=== PATIENT | male | born 1985 | race American Indian/Alaskan Native ===

== ENCOUNTER 2022-07-01 13:17 | Inpatient (IN) | payer OTHER, MEDICAID, SELFPAY ==
[2022-07-01] VITALS (30 sets, daily range): BP systolic 79–131; BP diastolic 40–70; PULSE 62–94; RESP 10–28; TEMP 36.2–36.6; O2SAT 84–100; BMI 42.5; BMI 39.4
--- NOTE | 2022-07-01 13:38 | PC.NURSE ---
In triage: pt also states while he had a seizure he hit his head. Small abrasion noted to L forehead
--- NOTE | 2022-07-01 13:47 | ED_ITS ---
HPI - General Adult General Chief complaint: Toxicology Problem Stated complaint: alcohol withdrawls Time Seen by Provider: 07/01/22 13:39 Source: patient and family Mode of arrival: Wheelchair History of Present Illness HPI narrative: 36-year-old male. Has a history of alcohol use disorder. Has been to detox in rehab in the past. He states that 1 week ago he went on a ?Samson? he states that his last drink was approximately 9 days ago. Since that time he states he has not ?recovered? from this Samson. He stated that he had a seizure 2 days ago at home in the kitchen. Apparently this was witnessed by his mother. He reports no injuries from this event. He has had 1 seizure in the past related to alcohol withdrawal. 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 Today he is not having any abdominal pain. He is having tingling in his legs. He is here because his mother advised that he come because she was c oncerned about his symptoms. Review of Systems Review of Systems ROS Unobtainable: All systems reviewed & are unremarkable except as noted in HPI and below Patient History Medical History Alcohol use disorder Social History Smoking Status: Never smoker Smoking Status: Never smoker alcohol intake frequency: 3 or more drinks per day Alcohol type: hard liquor Substance Use Type: marijuana Exam Initial Vital Signs Initial Vital Signs: Vital Signs Temperature 97.8 F 07/01/22 13:32 Pulse Rate 94 H 07/01/22 13:32 Respiratory Rate 18 07/01/22 13:32 Blood Pressure 131/56 L 07/01/22 13:32 Pulse Oximetry 100 07/01/22 13:32 Oxygen Delivery Method Room Air 07/01/22 13:32 Const General: cooperative and No ill appearing HENMT Head: normal to inspection and normocephalic Resp Effort & Inspection: normal respiratory effort Auscultation: clear to auscultation bilaterally Cardio Rate: regular rate Rhythm: regular rhythm GI Inspection: normal to inspection and non-distended Palpation: soft and No tender Skin General: no rashes or lesions noted Neuro General: patient alert, patient awake and moves all extremities Extrem General: capillary refill normal Psych Appearance: grossly normal and well kempt Course Orders Ordered: ED Orders 07/01/22 13:38 Magnesium Urgent 07/01/22 13:40 Urine Drug Screen, Rapid Stat 07/01/22 13:48 Complete Blood Count AUTO DIFF Stat Comprehensive Metabolic Panel Stat Ethanol (ETOH) Stat Lipase Stat 07/01/22 14:31 COVID19 -Nasal RAPID Stat 07/01/22 16:00 BMP [Basic Metabolic Panel] Q4H Hepatic (Liver) Panel Urgent 07/01/22 20:00 BMP [Basic Metabolic Panel] Q4H 07/02/22 00:00 BMP [Basic Metabolic Panel] Q4H 07/02/22 04:00 BMP [Basic Metabolic Panel] Q4H 07/02/22 05:00 CBC Auto Diff [Complete Blood Count AUTO DIFF] DAILY 07/02/22 08:00 BMP [Basic Metabolic Panel] Q4H 07/02/22 12:00 BMP [Basic Metabolic Panel] Q4H 07/02/22 16:00 BMP [Basic Metabolic Panel] Q4H 07/02/22 20:00 BMP [Basic Metabolic Panel] Q4H 07/03/22 05:00 CBC Auto Diff [Complete Blood Count AUTO DIFF] DAILY 07/04/22 05:00 CBC Auto Diff [Complete Blood Count AUTO DIFF] DAILY Folic Acid (Folic Acid 1 Mg Tablet) 1 mg PO DAILY [facility] POTASSIUM CHLORIDE IN WATER (Potassium Cl 10 Meq/100 Ml Jacqueline) 10 meq in 100 mls @ 100 mls/hr IV Q1H TENA Stop: 07/01/22 18:29 Last Admin: 07/01/22 14:42 Dose: 100 mls/hr Documented By: ZACK Lorazepam (Lorazepam 1 Mg Tablet) 0 mg PO CIWAPRN PRN; Protocol PRN Reason: Alcohol Withdrawal Multivitamins (Multivitamin 1 Tablet) 1 tab PO DAILY [facility] Multivitamins (Multivitamin 1 Tablet) 1 tab PO DAILY [facility] Naloxone HCl (Naloxone 0.4 Mg/Ml Vial) 0.2 mg IV Q2MIN PRN PRN Reason: Opiate Reversal Thiamine HCl (Thiamine 100 Mg Tablet) 100 mg PO DAILY TENA Stop: 07/05/22 09:01 Discontinued Medications Sodium Chloride (Normal Saline 0.9%) 1,000 mls @ 1,000 mls/hr IV BOLUS ONE Stop: 07/01/22 14:38 Last Admin: 07/01/22 14:23 Dose: 1,000 mls/hr Documented By: ZACK Thiamine HCl 100 mg/ Sodium (Chloride) 101 mls @ 404 mls/hr IV NOW ONE Stop: 07/01/22 13:40 Last Infusion: 07/01/22 14:52 Dose: 0 mls/hr Documented By: Admin: 07/01/22 14:33 Dose: 404 mls/hr Documented By: ZACK Phenobarbital (Phenobarbital 65 Mg/Ml Vial) 260 mg IV NOW ONE Stop: 07/01/22 13:40 Last Admin: 07/01/22 14:22 Dose: 260 mg Documented By: ZACK Potassium Chloride (Potassium Chloride 20 Meq Tab) 80 meq PO NOW ONE Stop: 07/01/22 14:37 Vital Signs Vital signs: Vital Signs - 8 hr 07/01/22 13:32 07/01/22 14:30 07/01/22 14:20 Temperature 97.8 F Pulse Rate 94 H 72 Respiratory Rate 18 15 Blood Pressure 131/56 L 111/62 Pulse Oximetry 100 100 84 L Oxygen Delivery Method Room Air Nasal Cannula Room Air Oxygen Flow Rate 2 Medical Decision Making Lab Data 07/01/22 13:48 07/01/22 13:48 Labs: Lab Results 07/01/22 07/01/22 07/01/22 Range/Units 13:48 13:48 14:31 WBC 12.7 H (4.5-11.0) X10^3/uL RBC 5.80 (4.5-5.9) X10^6/uL Hgb 14.5 (13.5-17.5) g/dL Hct 43.5 (41-53) % MCV 75.0 L (80-100) fL MCH 25.0 L (26-34) PG MCHC 33.4 (30-36) % RDW 15.5 H (11.6-14.8) % Plt Count 221 (150-400) X10^3/uL Neut % (Auto) 73.6 (50-75) % Lymph % (Auto) 9.0 L (25-40) % [place] % (Auto) 17.1 H (3-14) % Eos % (Auto) 0.1 L (2-4) % Baso % (Auto) 0.2 (0-2) % Neut # (Auto) 9400 H (7357-0251) /uL Lymph # (Auto) 1200 (5624-0558) /uL [place] # (Auto) 2200 H (0-900) /uL Eos # (Auto) 0 (0-450) /uL Baso # (Auto) 0 (0-100) /uL Sodium 118 L* (137-145) mmol/L Potassium 1.8 L* (3.4-5.1) mmol/L Chloride 52 L* (98-107) mmol/L Carbon Dioxide 45 H* (22-32) mmol/L BUN 45 H (9-20) mg/dL Creatinine 1.27 H (0.66-1.25) mg/dL Estimated GFR > 60 (>60) mL/min BUN/Creatinine Ratio 35.4 H (6-22) Glucose 185 H (70-100) mg/dL Calcium 8.9 (8.4-10.2) mg/dL Total Bilirubin 4.9 H (0.2-1.3) mg/dL AST 74 H (17-59) IU/L ALT 60 H (<50) IU/L Alkaline Phosphatase 85 (38-126) U/L Total Protein 9.0 H (6.3-8.2) g/dL Albumin 4.9 (3.5-5.0) g/dL Globulin 4.1 (1.7-4.1) g/dL Albumin/Globulin Ratio 1.2 (1.0-2.8) Lipase 479 H (23-300) U/L Ethyl Alcohol < 10 ( - 10) mg/dL SARS-CoV-2 (PCR) Negative (Negative) MDM Narrative Medical decision making narrative: Patient arrived approximately 10 days after his reported last drink. He did have reported seizure 2 days ago. He is somewhat out of the window for concern of alcohol withdrawal. Here in the emergency department his chemistries are significantly abnormal. Has a sodium of 118 which very well could have been the reason for his seizure 2 days ago. He is also hypokalemic. Also has an elevation in his creatinine. All these very well could be because of his alcohol use. Because of his abnormalities patient does require admission to the hospital for further evaluation and treatment. I did discuss this with the patient who expressed understanding and agreement. Discussed the case with Dr. Perdomo on-call for Internal Medicine who will admit. Discharge Plan Departure Patient Disposition: Admitted As Inpatient Clinical Impression: Hyponatremia, Hypokalemia, Alcohol use disorder, Seizure-like activity, Acute kidney injury Admit Date/Time: 07/01/22 14:40 Admit Provider: Juanjose Perdomo
[2022-07-01 13:56] LABS: Add Manual Diff / Slide Review NO; Basophils Absolute Auto 0 /uL (0-100); Basophils Percent Auto 0.2 % (0-2); Eosinophils Absolute Auto 0 /uL (0-450); Eosinophils Percent Auto 0.1 % (2-4); Hematocrit 43.5 % (41-53); Hemoglobin 14.5 g/dL (13.5-17.5); Lymphocytes Absolute Auto 1200 /uL (1100-4500); Mean Corpuscular HGB Conc 33.4 % (30-36); Monocytes Absolute Auto 2200 /uL (0-900); Monocytes Percent Auto 17.1 % (3-14); Neutrophils Absolute Auto 9400 /uL (1500-7000); Neutrophils Percent Auto 73.6 % (50-75); Platelet Count 221 X10^3/uL (150-400); Red Cell Distribution Width 15.5 % (11.6-14.8); White Blood Cell Count 12.7 X10^3/uL (4.5-11.0)
[2022-07-01 14:11] LABS: Albumin 4.9 g/dL (3.5-5.0); Albumin Globulin Ratio 1.2 (1.0-2.8); Alkaline Phosphatase 85 U/L (38-126); BUN Creatinine Ratio 35.4 (6-22); Bilirubin Total 4.9 mg/dL (0.2-1.3); Blood Urea Nitrogen 45 mg/dL (9-20); Calcium 8.9 mg/dL (8.4-10.2); Estimated Glomerular Filt Rate > 60 mL/min (>60); Ethanol (ETOH) < 10 mg/dL; Globulin 4.1 g/dL (1.7-4.1); Glucose 185 mg/dL (70-100); HEMOLYSIS < 15 (0-50); Lipase 479 U/L (23-300)
[2022-07-01 14:17] LABS: Aspartate Aminotransferase 74 IU/L (17-59)
[2022-07-01 14:19] LABS: Alanine Aminotransferase 60 IU/L (<50)
[2022-07-01 14:20] LABS: Sodium 118 mmol/L (137-145)
[2022-07-01 14:21] LABS: Carbon Dioxide 45 mmol/L (22-32); Chloride 52 mmol/L (98-107); Potassium 1.8 mmol/L (3.4-5.1)
[2022-07-01] MEDS: PHENobarbital 65 MG/ML VIAL 260 MG IV (14:22)
[2022-07-01] MEDS: SODIUM CHLORIDE 0.9% 1,000 ML 1000 ML IV ×3 (14:23→18:20)
[2022-07-01] MEDS: THIAMINE 100 MG in SODIUM CHLORIDE 0.9% 100 ML 404 MG IV (14:33)
[2022-07-01] MEDS: POTASSIUM CHLORIDE IN WATER 10 MEQ/100 ML PIGGYBACK 100 MEQ IV ×4 (14:42→17:36)
[2022-07-01 14:48] LABS: COVID19 -Nasal RAPID Negative (Negative)
--- NOTE | 2022-07-01 14:56 | PM.HP.1 ---
History of Present Illness History of Present Illness Date Patient Seen: 07/01/22 Chief complaint: alcohol withdrawls Narrative: Colleen Dugan is a 36yo M with PMH of alcohol abuse and pancreatitis who presents with seizure 2 days ago and found to have severe hyponatremia and hypokalemia. Patient states he developed nausea about a week ago and hasn't eaten a full meal since then. He has had very poor po intake of fluids during that time. He went on an alcohol field and says his last drink was 9 days ago. He has been feeling poorly since then. He then had a seizure witnessed by his mother 2 days ago. He did not want to come to the hospital but his mom finally forced him to today. He currently has a very dry mouth and feels very cold. Denies current headache, NV, CP, SOB, abd pain, diarrhea or dysuria. Patient History Medical History Alcohol use disorder Family & Social History Safety & Behavioral: Feels Safe in Current Yes Environment Suicidal Ideation Description None Suicide Plan Description No Plan Tobacco & Substance use: Smoking Status Never smoker alcohol intake frequency 3 or more drinks per day Substance Use Type marijuana Meds Home Medications and Allergies Home Medications Medication Instructions Recorded Confirmed Type No Known Home Medications 07/01/22 07/01/22 History Allergies Allergy/AdvReac Type Severity Reaction Status Date / Time codeine Allergy Severe Anaphylaxis Verified 07/01/22 16:11 Review of Systems Review of Systems Narrative: All other systems reviewed with the patient and are negative unless otherwise stated. Exam Vital Signs (past 8 hours): - 07/01/22 13:32 07/01/22 14:30 07/01/22 14:20 Temperature 97.8 F Pulse Rate 94 H 72 Respiratory Rate 18 15 Blood Pressure 131/56 L 111/62 Pulse Oximetry 100 100 84 L Oxygen Delivery Method Room Air Nasal Cannula Room Air Oxygen Flow Rate 2 Oxygen Delivery Method Nasal Cannula Oxygen Flow Rate 2 Narrative Exam Narrative: GEN: no acute distress, very dry appearing HEENT: dry mucous membranes, PERRL NECK: trachea midline, no JVD CV: regular rate and rhythm, no murmurs PULM: clear bilaterally ABD: soft, nontender, nondistended, no organomegaly EXT: warm and well perfused with no edema NEURO: awake, alert, oriented, no focal deficits Objective Labs 07/01/22 13:48 07/01/22 16:20 Labs: Laboratory Results - last 24 hr 07/01/22 07/01/22 07/01/22 13:48 13:48 14:31 WBC 12.7 H RBC 5.80 Hgb 14.5 Hct 43.5 MCV 75.0 L MCH 25.0 L MCHC 33.4 RDW 15.5 H Plt Count 221 Neut % (Auto) 73.6 Lymph % (Auto) 9.0 L [place] % (Auto) 17.1 H Eos % (Auto) 0.1 L Baso % (Auto) 0.2 Neut # (Auto) 9400 H Lymph # (Auto) 1200 [place] # (Auto) 2200 H Eos # (Auto) 0 Baso # (Auto) 0 Sodium 118 L* Potassium 1.8 L* Chloride 52 L* Carbon Dioxide 45 H* BUN 45 H Creatinine 1.27 H Estimated GFR > 60 BUN/Creatinine Ratio 35.4 H Glucose 185 H Calcium 8.9 Total Bilirubin 4.9 H AST 74 H ALT 60 H Alkaline Phosphatase 85 Total Protein 9.0 H Albumin 4.9 Globulin 4.1 Albumin/Globulin Ratio 1.2 Lipase 479 H Ethyl Alcohol < 10 SARS-CoV-2 (PCR) Negative Assessment & Plan Assessment & Plan narrative: # severe hyponatremia with subacute seizure -patient's mother notes a seizure at home 2 days ago, likely due to low sodium from hypovolemia as chloride is 52 -1L NS bolus given in ED, check urine sodium -BMP q4h -goal sodium 125 at 1pm on 07/02 -avoid rapid correction, will use D5 and DDAVP if needed # severe hypokalemia -potassium 1.8 -given 80 of po K and 40 IV K -monitor -check mag # hyperbilirubinemia and elevated LFTs -T-bili 4.9, AST 74 and ALT 60. Alk phos normal. -no abdominal pain, doubt choledocho -check fractionated bilirubin -monitor # alcohol abuse -went on a field 10 days ago, has had alcohol withdrawal seizures in the past -out of withdrawal window, but intiate CIWA just in case Code status is full code. COVID negative. DVT prophylaxis with SCDs. Proxy is mother Mesfin. I have reviewed home meds and used all available resources to reconcile the home meds. I spent a total of 35 minutes of critical care time on this patient's care today; this time is exclusive of procedural time. This patient will be admitted as inpatient and will require greater than 2 midnights of hospital time to treat hyponatremia and hypokalemia. Time Spent With Patient Critical Care time: I spent a total of [] minutes of critical care time on this patient's care today; this time is exclusive of procedural time.
--- NOTE | 2022-07-01 14:58 | PC.NURSE ---
Mom: Mesfin Julian [phone]
[2022-07-01 15:06] LABS: Magnesium 2.7 mg/dL (1.6-2.3)
[2022-07-01] MEDS: POTASSIUM CHLORIDE 20 MEQ TAB 80 MEQ PO ×2 (15:22→17:09)
[2022-07-01 16:43] LABS: Alanine Aminotransferase 41 IU/L (<50); Albumin 4.3 g/dL (3.5-5.0); Albumin Globulin Ratio 1.1 (1.0-2.8); Alkaline Phosphatase 79 U/L (38-126); Aspartate Aminotransferase 65 IU/L (17-59); BUN Creatinine Ratio 39.6 (6-22); Bilirubin Total 4.6 mg/dL (0.2-1.3); Bilirubin Unconjugated 4.2 mg/dL (0.0-1.1); Blood Urea Nitrogen 44 mg/dL (9-20); Estimated Glomerular Filt Rate > 60 mL/min (>60); Glucose 100 mg/dL (70-100); HEMOLYSIS 17 (0-50); Sodium 120 mmol/L (137-145); Total Protein 8.3 g/dL (6.3-8.2)
[2022-07-01 16:50] LABS: Potassium 1.8 mmol/L (3.4-5.1)
[2022-07-01 16:51] LABS: Carbon Dioxide 53 mmol/L (22-32); Chloride 57 mmol/L (98-107)
[2022-07-01] MEDS: SODIUM CHLORIDE 0.9% 1,000 ML 100 ML IV ×2 (17:36→23:25)
[2022-07-01 17:37] LABS: MRSA (Nasal) PCR Not Detected (Not Detect)
--- NOTE | 2022-07-01 17:48 | PC.NURSE ---
pt arrived via gurney from ED, bedside report received, connected to monitoring equipment, oriented to room and call light system, admission assessment completed. Dr Perdomo notified of critical labs, new orders in computer for NS at 100ml/hr. Pt became hypotensive MAP of 62 BP 87/43, Dr Perdomo notified, new orders placed for 1L bolus of NS, provider at bedside. Bed low and locked, alarm on for safety, will continue to monitor.
--- NOTE | 2022-07-01 19:27 | DI.CT.S_ITS ---
PROCEDURE: CT ABDOMEN PELVIS W CON INDICATIONS: nausea, elevated bili TECHNIQUE: After the administration of IV contrast, axial sections were acquired from the lung bases to the pubic symphysis. Coronal and sagittal reformats were performed. For radiation dose reduction, the following was used: automated exposure control, adjustment of mA and/or kV according to patient size. COMPARISON: [facility], CT, CT ABDOMEN PELVIS WITH CONTRAST, 11/16/2018, 17:53. FINDINGS: Image quality: Excellent. Lung bases: There is mild dependent atelectasis. Heart: Heart is normal in size. ABDOMEN: Liver: No mass lesion. Gallbladder: There are small dependent calcified gallstones in the gallbladder without wall thickening or pericholecystic fluid. Biliary ducts: No biliary ductal dilatation. Pancreas: Unremarkable. Spleen: Normal in size. Adrenal Glands: No adrenal nodules. Kidneys and Ureters: No hydronephrosis. There are a the few hypodense foci within the kidneys which are too small to characterize but likely represent cysts. Stomach and Bowel: Stomach, small bowel loops, and colon are normal in caliber and wall thickness. The appendix is normal. Peritoneum: No abnormal intraperitoneal fluid. No free air. Ventral Wall: No hernia. Abdominal Nodes: No retroperitoneal or mesenteric adenopathy by size criteria. Vessels: Aorta and inferior vena cava are normal in size. PELVIS: Pelvic Organs: Unremarkable. Bladder: Unremarkable. Pelvic Nodes: No enlarged lymph nodes. Miscellaneous: No inguinal hernias are seen. Bones: Visualized osseous structures demonstrate no suspicious focal lesions. IMPRESSION: 1. Cholelithiasis without CT evidence of acute cholecystitis. 2. No evidence of appendicitis. 3. No evidence of bowel obstruction. Dictated by: Carlos Beck M.D. on 07/02/2022 at 0:30 Approved by: Carlos Beck M.D. on 07/02/2022 at 0:33
[2022-07-01 20:07] LABS: Hematocrit 36.2 % (41-53); Hemoglobin 12.3 g/dL (13.5-17.5); Mean Corpuscular Hemoglobin 25.4 PG (26-34); Mean Corpuscular Volume 74.8 fL (80-100); Platelet Count 184 X10^3/uL (150-400); Red Blood Cell Count 4.84 X10^6/uL (4.5-5.9); Red Cell Distribution Width 15.4 % (11.6-14.8); White Blood Cell Count 10.7 X10^3/uL (4.5-11.0)
[2022-07-01 20:35] LABS: BUN Creatinine Ratio 36.4 (6-22); Blood Urea Nitrogen 36 mg/dL (9-20); Calcium 7.3 mg/dL (8.4-10.2); Estimated Glomerular Filt Rate > 60 mL/min (>60); Glucose 103 mg/dL (70-100); HEMOLYSIS < 15 (0-50); Sodium 121 mmol/L (137-145)
[2022-07-01 20:44] LABS: Carbon Dioxide 44 mmol/L (22-32); Chloride 69 mmol/L (98-107); Potassium 2.6 mmol/L (3.4-5.1)
[2022-07-01] MEDS: POTASSIUM CHLORIDE 20 MEQ TAB 40 MEQ PO (22:19)
[2022-07-01] MEDS: SODIUM CHLORIDE 0.9% 500 ML 1000 ML IV (22:21)
[2022-07-01 22:30] LABS: UR Morphine/Opiate cutoff 300 Negative (Negative); Ur Creatinine Normal (Normal); Ur Specific Gravity Normal (Normal); Urine Amphetamines Negative (Negative); Urine Barbiturates Positive (Negative); Urine Benzodiazepines Negative (Negative); Urine Cocaine Negative (Negative); Urine MDMA Negative (Negative); Urine Methadone Negative (Negative); Urine Methamphetamines Negative (Negative); Urine Oxycodone Negative (Negative); Urine Phencyclidine Negative (Negative); Urine Tetrahydrocannabinol Positive (Negative); Urine Tricyclic Antidepressant Negative (Negative); Urine pH Normal (Normal)
--- NOTE | 2022-07-01 22:45 | PC.NURSE ---
2200-Patient transported to CT Scan with school bus monitor. Patient tolerated procedure well. Patient was able to stand and void when it was noted that his bladder was very distended. Patient verbalized relief of abdominal s/s. Bolus complete and po potassium given per MD order. Will monitor.
[2022-07-01 22:56] LABS: Sodium Urine Random 36 mmol/L (30-90)
[2022-07-02] VITALS (51 sets, daily range): BP systolic 83–128; BP diastolic 43–63; PULSE 64–96; RESP 10–35; TEMP 35.9–36.8; O2SAT 96–100
[2022-07-02 01:05] LABS: BUN Creatinine Ratio 33.3 (6-22); Blood Urea Nitrogen 30 mg/dL (9-20); Calcium 7.4 mg/dL (8.4-10.2); Estimated Glomerular Filt Rate > 60 mL/min (>60); Glucose 102 mg/dL (70-100); HEMOLYSIS < 15 (0-50); Sodium 122 mmol/L (137-145)
[2022-07-02 01:15] LABS: Potassium 2.5 mmol/L (3.4-5.1)
[2022-07-02 01:16] LABS: Carbon Dioxide 40 mmol/L (22-32); Chloride 75 mmol/L (98-107)
[2022-07-02 04:54] LABS: Add Manual Diff / Slide Review NO; Basophils Absolute Auto 100 /uL (0-100); Basophils Percent Auto 0.6 % (0-2); Eosinophils Absolute Auto 0 /uL (0-450); Eosinophils Percent Auto 0.5 % (2-4); Hematocrit 36.2 % (41-53); Lymphocytes Absolute Auto 3200 /uL (1100-4500); Lymphocytes Percent Auto 34.4 % (25-40); Mean Corpuscular HGB Conc 33.1 % (30-36); Mean Corpuscular Hemoglobin 25.2 PG (26-34); Monocytes Absolute Auto 1300 /uL (0-900); Monocytes Percent Auto 14.4 % (3-14); Neutrophils Absolute Auto 4600 /uL (1500-7000); Neutrophils Percent Auto 50.1 % (50-75); Platelet Count 171 X10^3/uL (150-400); Red Blood Cell Count 4.77 X10^6/uL (4.5-5.9); Red Cell Distribution Width 15.5 % (11.6-14.8); White Blood Cell Count 9.3 X10^3/uL (4.5-11.0)
[2022-07-02 05:02] LABS: BUN Creatinine Ratio 31.8 (6-22); Blood Urea Nitrogen 27 mg/dL (9-20); Calcium 7.7 mg/dL (8.4-10.2); Chloride 77 mmol/L (98-107); Estimated Glomerular Filt Rate > 60 mL/min (>60); Glucose 96 mg/dL (70-100); HEMOLYSIS < 15 (0-50); Sodium 125 mmol/L (137-145)
[2022-07-02 05:10] LABS: Potassium 2.4 mmol/L (3.4-5.1)
[2022-07-02 05:11] LABS: Carbon Dioxide 43 mmol/L (22-32)
[2022-07-02] MEDS: DEXTROSE 5% WATER 1,000 ML 100 ML IV (06:16)
--- NOTE | 2022-07-02 07:14 | P.PN_ITS ---
Subjective Subjective Interval history: Sodium 126 today. D5 running. Patient hypotensive to 80/40's so levophed started. ACTH stim test pending, echo pending. K 2.3. Patient feels better today he says. Has an appetite. Exam Vital Signs (past 8 hours): - 07/01/22 23:30 07/01/22 23:30 07/02/22 00:00 Temperature Pulse Rate 70 Respiratory Rate 18 Blood Pressure 88/42 L 83/45 L Pulse Oximetry 95 Oxygen Delivery Method Oxygen Flow Rate 07/02/22 00:00 07/02/22 01:50 07/02/22 00:30 Temperature 96.6 F L Pulse Rate 70 Respiratory Rate 21 Blood Pressure 85/47 L Pulse Oximetry 96 Oxygen Delivery Method Nasal Cannula Oxygen Flow Rate 2 07/02/22 00:30 07/02/22 01:00 07/02/22 01:00 Temperature Pulse Rate 69 67 Respiratory Rate 20 20 Blood Pressure 92/50 L Pulse Oximetry 96 98 Oxygen Delivery Method Oxygen Flow Rate 07/02/22 01:30 07/02/22 01:30 07/02/22 02:00 Temperature Pulse Rate 66 Respiratory Rate 21 Blood Pressure 88/53 L 91/49 L Pulse Oximetry 99 Oxygen Delivery Method Oxygen Flow Rate 07/02/22 02:00 07/02/22 02:30 07/02/22 02:30 Temperature Pulse Rate 79 66 Respiratory Rate 19 21 Blood Pressure 99/55 L Pulse Oximetry 100 98 Oxygen Delivery Method Oxygen Flow Rate 2 07/02/22 03:00 07/02/22 03:00 07/02/22 03:30 Temperature Pulse Rate 72 Respiratory Rate 12 Blood Pressure 105/60 104/55 L Pulse Oximetry 98 Oxygen Delivery Method Oxygen Flow Rate 07/02/22 03:30 07/02/22 04:00 07/02/22 04:00 Temperature 96.8 F L Pulse Rate 68 64 Respiratory Rate 10 L 20 Blood Pressure 102/55 L Pulse Oximetry 100 98 Oxygen Delivery Method Oxygen Flow Rate 2 2 07/02/22 04:30 07/02/22 04:30 07/02/22 05:00 Temperature Pulse Rate 71 Respiratory Rate 24 Blood Pressure 92/46 L 87/43 L Pulse Oximetry 100 Oxygen Delivery Method Oxygen Flow Rate 07/02/22 05:00 07/02/22 05:30 07/02/22 05:30 Temperature Pulse Rate 72 72 Respiratory Rate 23 21 Blood Pressure 87/45 L Pulse Oximetry 97 100 Oxygen Delivery Method Oxygen Flow Rate 07/02/22 06:00 07/02/22 06:00 Temperature Pulse Rate 72 Respiratory Rate 19 Blood Pressure 95/55 L Pulse Oximetry 98 Oxygen Delivery Method Oxygen Flow Rate 2 Oxygen Delivery Method Nasal Cannula Oxygen Flow Rate 2 Narrative Exam Narrative: GEN: no acute distress, appears more hydrated today HEENT: dry mucous membranes, PERRL NECK: trachea midline, no JVD CV: regular rate and rhythm, no murmurs PULM: clear bilaterally ABD: soft, nontender, nondistended, no organomegaly EXT: warm and well perfused with no edema NEURO: awake, alert, oriented, no focal deficits Objective Labs 07/02/22 04:05 07/02/22 11:36 Labs: Laboratory Results - last 24 hr 07/01/22 07/01/22 07/01/22 13:38 13:48 13:48 WBC 12.7 H RBC 5.80 Hgb 14.5 Hct 43.5 MCV 75.0 L MCH 25.0 L MCHC 33.4 RDW 15.5 H Plt Count 221 Neut % (Auto) 73.6 Lymph % (Auto) 9.0 L Preble % (Auto) 17.1 H Eos % (Auto) 0.1 L Baso % (Auto) 0.2 Neut # (Auto) 9400 H Lymph # (Auto) 1200 Preble # (Auto) 2200 H Eos # (Auto) 0 Baso # (Auto) 0 Sodium 118 L* Potassium 1.8 L* Chloride 52 L* Carbon Dioxide 45 H* BUN 45 H Creatinine 1.27 H Estimated GFR > 60 BUN/Creatinine Ratio 35.4 H Glucose 185 H Calcium 8.9 Magnesium 2.7 H Total Bilirubin 4.9 H Conjugated Bilirubin Unconjugated Bilirubin AST 74 H ALT 60 H Alkaline Phosphatase 85 Total Protein 9.0 H Albumin 4.9 Globulin 4.1 Albumin/Globulin Ratio 1.2 Lipase 479 H Ur Random Sodium Nasal Screen MRSA (PCR) U Opiates 300ng/mL cut Ur Oxycodone Screen Urine Methadone Screen Ur Barbiturates Screen U Tricyclic Antidepress Ur Phencyclidine Scrn Ur Amphetamines Screen U Methamphetamines Scrn Ur MDMA Scrn (Ecstasy) U Benzodiazepines Scrn Urine Cocaine Screen U Marijuana (THC) Screen Ethyl Alcohol < 10 SARS-CoV-2 (PCR) 07/01/22 07/01/22 07/01/22 14:31 16:05 16:20 WBC RBC Hgb Hct MCV MCH MCHC RDW Plt Count Neut % (Auto) Lymph % (Auto) Preble % (Auto) Eos % (Auto) Baso % (Auto) Neut # (Auto) Lymph # (Auto) Preble # (Auto) Eos # (Auto) Baso # (Auto) Sodium 120 L Potassium 1.8 L* Chloride 57 L* Carbon Dioxide 53 H* BUN 44 H Creatinine 1.11 Estimated GFR > 60 BUN/Creatinine Ratio 39.6 H Glucose 100 Calcium 8.0 L Magnesium Total Bilirubin 4.6 H Conjugated Bilirubin 0.0 Unconjugated Bilirubin 4.2 H AST 65 H ALT 41 Alkaline Phosphatase 79 Total Protein 8.3 H Albumin 4.3 Globulin 4.0 Albumin/Globulin Ratio 1.1 Lipase Ur Random Sodium Nasal Screen MRSA (PCR) Not detected U Opiates 300ng/mL cut Ur Oxycodone Screen Urine Methadone Screen Ur Barbiturates Screen U Tricyclic Antidepress Ur Phencyclidine Scrn Ur Amphetamines Screen U Methamphetamines Scrn Ur MDMA Scrn (Ecstasy) U Benzodiazepines Scrn Urine Cocaine Screen U Marijuana (THC) Screen Ethyl Alcohol SARS-CoV-2 (PCR) Negative 07/01/22 07/01/22 07/01/22 19:52 19:52 21:30 WBC 10.7 RBC 4.84 Hgb 12.3 L Hct 36.2 L MCV 74.8 L MCH 25.4 L MCHC 34.0 RDW 15.4 H Plt Count 184 Neut % (Auto) Lymph % (Auto) Preble % (Auto) Eos % (Auto) Baso % (Auto) Neut # (Auto) Lymph # (Auto) Preble # (Auto) Eos # (Auto) Baso # (Auto) Sodium 121 L Potassium 2.6 L* Chloride 69 L* Carbon Dioxide 44 H* BUN 36 H Creatinine 0.99 Estimated GFR > 60 BUN/Creatinine Ratio 36.4 H Glucose 103 H Calcium 7.3 L Magnesium Total Bilirubin Conjugated Bilirubin Unconjugated Bilirubin AST ALT Alkaline Phosphatase Total Protein Albumin Globulin Albumin/Globulin Ratio Lipase Ur Random Sodium 36 Nasal Screen MRSA (PCR) U Opiates 300ng/mL cut Ur Oxycodone Screen Urine Methadone Screen Ur Barbiturates Screen U Tricyclic Antidepress Ur Phencyclidine Scrn Ur Amphetamines Screen U Methamphetamines Scrn Ur MDMA Scrn (Ecstasy) U Benzodiazepines Scrn Urine Cocaine Screen U Marijuana (THC) Screen Ethyl Alcohol SARS-CoV-2 (PCR) 07/01/22 07/02/22 07/02/22 21:30 00:47 04:05 WBC RBC Hgb Hct MCV MCH MCHC RDW Plt Count Neut % (Auto) Lymph % (Auto) Preble % (Auto) Eos % (Auto) Baso % (Auto) Neut # (Auto) Lymph # (Auto) Preble # (Auto) Eos # (Auto) Baso # (Auto) Sodium 122 L 125 L Potassium 2.5 L* 2.4 L* Chloride 75 L* 77 L Carbon Dioxide 40 H* 43 H* BUN 30 H 27 H Creatinine 0.90 0.85 Estimated GFR > 60 > 60 BUN/Creatinine Ratio 33.3 H 31.8 H Glucose 102 H 96 Calcium 7.4 L 7.7 L Magnesium Total Bilirubin Conjugated Bilirubin Unconjugated Bilirubin AST ALT Alkaline Phosphatase Total Protein Albumin Globulin Albumin/Globulin Ratio Lipase Ur Random Sodium Nasal Screen MRSA (PCR) U Opiates 300ng/mL cut Negative Ur Oxycodone Screen Negative Urine Methadone Screen Negative Ur Barbiturates Screen Positive H U Tricyclic Antidepress Negative Ur Phencyclidine Scrn Negative Ur Amphetamines Screen Negative U Methamphetamines Scrn Negative Ur MDMA Scrn (Ecstasy) Negative U Benzodiazepines Scrn Negative Urine Cocaine Screen Negative U Marijuana (THC) Screen Positive H Ethyl Alcohol SARS-CoV-2 (PCR) 07/02/22 04:05 WBC 9.3 RBC 4.77 Hgb 12.0 L Hct 36.2 L MCV 76.0 L MCH 25.2 L MCHC 33.1 RDW 15.5 H Plt Count 171 Neut % (Auto) 50.1 D Lymph % (Auto) 34.4 D Preble % (Auto) 14.4 H Eos % (Auto) 0.5 L Baso % (Auto) 0.6 Neut # (Auto) 4600 Lymph # (Auto) 3200 Preble # (Auto) 1300 H Eos # (Auto) 0 Baso # (Auto) 100 Sodium Potassium Chloride Carbon Dioxide BUN Creatinine Estimated GFR BUN/Creatinine Ratio Glucose Calcium Magnesium Total Bilirubin Conjugated Bilirubin Unconjugated Bilirubin AST ALT Alkaline Phosphatase Total Protein Albumin Globulin Albumin/Globulin Ratio Lipase Ur Random Sodium Nasal Screen MRSA (PCR) U Opiates 300ng/mL cut Ur Oxycodone Screen Urine Methadone Screen Ur Barbiturates Screen U Tricyclic Antidepress Ur Phencyclidine Scrn Ur Amphetamines Screen U Methamphetamines Scrn Ur MDMA Scrn (Ecstasy) U Benzodiazepines Scrn Urine Cocaine Screen U Marijuana (THC) Screen Ethyl Alcohol SARS-CoV-2 (PCR) PFS Medical History Alcohol use disorder Social History household members: family Smoking Status: Current some day smoker alcohol intake: current Assessment & Plan Assessment & Plan narrative: # undifferentiated shock, unclear etiology -BP 80/40's despite fluid boluses, levophed started -check echo, procal, ACTH stim test as AM cortisol mildly low at 6 given hypotension -lactate 2.9, trend to normal -likely hypovolemic as patient's chloride very low and bicarb very high -will given another 1L bolus # severe hyponatremia with subacute seizure, improving -patient's mother notes a seizure at home 2 days ago, likely due to low sodium from hypovolemia as chloride is 52 -1L NS bolus given in ED -BMP q4h -goal sodium 131 at noon on 07/03 -avoid rapid correction, will use D5 and DDAVP if needed # severe hypokalemia, hypophosphatemia improving -potassium 1.8 on admission, hadn't eaten much in 1 week per patient -given large doses of IV and po K and now in mid-2's -monitor -mag 2.0 -continue po K 80mEq TID with meals -phos 1.7, giving K phos IV # prolonged QT -QTc 559 on EKG on 07/02, not on offending medications -mag 2, check daily -avoid prolonging medications -monitor -tele # hyperbilirubinemia and elevated LFTs -T-bili 4.9, AST 74 and ALT 60. Alk phos normal. -no abdominal pain, doubt choledocho -unfractionated bili 4.2, fractionated is 0 thus making obstructive cause unlikely and intrinsic liver disease likely -monitor # alcohol abuse with h/o alcohol withdrawal seizures -went on a field 10 days ago -not in withdrawals, outside of window as last drink 9 days ago Code status is full code. COVID negative. DVT prophylaxis with SCDs. Proxy is mother Mesfin. I have reviewed home meds and used all available resources to reconcile the home meds. I spent a total of 35 minutes of critical care time on this patient's care today; this time is exclusive of procedural time. Dispo: ICU Time Spent With Patient Critical Care time: I spent a total of [] minutes of critical care time on this patient's care today; this time is exclusive of procedural time. Quality VTE Deep Vein Thrombosis/Pulmonary Embolism Present on Admission: No
[2022-07-02] MEDS: THIAMINE 100 MG TABLET PO (08:15)
[2022-07-02] MEDS: MULTIVITAMIN 1 TABLET 1 TAB PO (08:15)
[2022-07-02] MEDS: FOLIC ACID 1 MG TABLET PO (08:15)
[2022-07-02] MEDS: POTASSIUM CHLORIDE 20 MEQ TAB 40 MEQ PO ×4 (08:15→16:48)
[2022-07-02 08:25] LABS: Blood Urea Nitrogen 24 mg/dL (9-20); Calcium 7.8 mg/dL (8.4-10.2); Chloride 78 mmol/L (98-107); Estimated Glomerular Filt Rate > 60 mL/min (>60); Glucose 114 mg/dL (70-100); HEMOLYSIS < 15 (0-50); Sodium 126 mmol/L (137-145)
[2022-07-02 08:31] LABS: Carbon Dioxide 41 mmol/L (22-32)
[2022-07-02 08:32] LABS: Potassium 2.3 mmol/L (3.4-5.1)
--- NOTE | 2022-07-02 08:42 | DI.ECHO.S_ITS ---
[place] +---------+ [facility] +---------+ : : [address] : : : : [id number] : : : : Phone: [phone]+ Echocardiogram Report + + :Name: CHAZ RICKS Study Date: 07/02/2022 Height: 68 in : :[facility] ReadingLocation: Weight: 259 lb : : Gender: Male BSA: 2.3 m2 : :: 1985 Age: 36 yrs BP: 102/53 mmHg: :Reason For Study: HYPOTENSION : :Ordering Physician: MARIBEL, : :MARCELLO Lau Performed By: Manju Lynch : :Referring: MARCELLO LÓPEZ : + + Interpretation Summary The left ventricle is normal in size and wall thickness. The ejection fraction is estimated to be 65-70%. Diastolic parameters suggest probable normal left ventricular diastolic function and normal filling pressures. The right ventricle is normal in size and function. No significant valvular pathology seen. The IVC is of normal diameter and collapses greater than 50% with a sniff. This suggests a low right atrial pressure of 3 mm Hg. Procedure: A two-dimensional transthoracic echocardiogram with color flow and Doppler was performed. The study quality was technically adequate. There is no prior echocardiogram noted for this patient. The patient was in sinus rhythm with heart rates between 72-81 bpm during the exam. Left Ventricle: The left ventricle is normal in size and wall thickness. There is no echo evidence for significant left ventricular outflow tract obstruction. There is no thrombus. The ejection fraction is estimated to be 65-70%. There are no focal wall motion abnormalities. Diastolic parameters suggest probable normal left ventricular diastolic function and normal filling pressures. Right Ventricle: The right ventricle is normal in size and function. Atria: The left atrial size is normal. Right atrial size is normal. There is no Doppler evidence for an interatrial shunt. Mitral Valve: The mitral valve is normal in structure and function. There is no mitral regurgitation noted. Aortic Valve: The aortic valve is trileaflet. The aortic valve opens well. There is no aortic valve stenosis. No aortic regurgitation is present. Tricuspid Valve: The tricuspid valve is normal in structure and function. No tricuspid regurgitation. Pulmonary artery pressures cannot be estimated because of the lack of a measurable TR jet velocity. Pulmonic Valve: The pulmonic valve is not well seen, but is grossly normal. There is no pulmonic valvular regurgitation. Great Vessels: The aortic root is normal size. The dimensions of the ascending aorta are normal. Ultrasound artifact seen in the aortic arch. The IVC is of normal diameter and collapses greater than 50% with a sniff. This suggests a low right atrial pressure of 3 mm Hg. Pericardium/ Pleura There is no pericardial effusion. There is no pleural effusion. MMode/2D Measurements & Calculations LVIDd: 4.3 cm LVOT diam: 2.1 cm LVIDs: 2.5 cm Ao root diam: 3.9 cm FS: 41.3 % asc Aorta Diam: 3.3 cm IVSd: 0.80 cm Ao Arch Diam (Prox Trans): 2.9 cm LVPWd: 0.77 cm LV fuller. diameter/BSA (cm/m^2): 1.9 LV sys. diameter/BSA (cm/m^2): 1.1 LA A2 area: 22.7 cm2 RA long axis: 4.8 cm LA A4 area: 16.9 cm2 RA area: 12.4 cm2 LA length (vol): 5.6 cm RA vol: 27.0 ml LA vol: 58.2 ml RA : 11.8 ml/m2 LA vol index: 25.5 ml/m2 IVC diam: 1.3 cm RVD1 (basal): 3.7 cm RVD2 (mid): 4.1 cm TAPSE: 2.5 cm Doppler Measurements & Calculations Ao V2 max: 182.1 cm/sec LVOT Max Yovani: 128.7 cm/sec Ao V2 mean: 140.4 cm/sec LV V1 max P.6 mmHg Ao max P.3 mmHg LV V1 VTI: 23.7 cm Ao mean P.4 mmHg IZABEL(I,D): 2.4 cm2 Ao V2 VTI: 34.2 cm IZABEL(V,D): 2.5 cm2 sev ratio: 0.69 IZABEL indexed to BSA (cm^2/m^2): 1.1 MV E max yovani: 95.5 cm/sec PA V2 max: 135.6 cm/sec MV A max yovani: 50.0 cm/sec PA V2 mean: 99.0 cm/sec MV E/A: 1.9 PA mean P.3 mmHg Med Peak E' Yovani: 10.4 cm/sec PA pr(Accel): 37.9 mmHg E/E' med: 9.2 Lat Peak E' Yovani: 13.3 cm/sec E/E' lat: 7.2 E/e' average: 8.2 MV dec time: 0.26 sec SV(LVOT): 82.5 ml Reading Physician:[id number] PM
--- NOTE | 2022-07-02 08:42 | PC.NURSE ---
Critical Lab: Critical lab reported to Dr. Conor Carrera 2.3 CO2 41 Updated on VS Fire Observer will be contacted by Hospitalist
[2022-07-02 09:37] LABS: Lactate (Lactic Acid) 2.9 mmol/L (0.7-2.1)
[2022-07-02 09:49] LABS: Cortisol AM (Before 10AM) 6.05 ug/dL (4.46-22.7)
--- NOTE | 2022-07-02 10:05 | P.TELICUCN_ITS ---
History of Present Illness Consult details IF CAMERA ACTIVATED, patient seen via real-time interactive audiovisual communication: Camera activated Date Patient Seen: 07/02/22 Chief complaint: alcohol withdrawls Reason for consult: nocturnal hypotension & hyponatremia Requesting provider: Juanjose Perdomo Consent obtained for tele-marketing communications associate care: Yes Patient Location: ICU Provider location (State): [place] Other participants/roles: Dr. Perdomo, hospitalist Bedside RN Narrative: 36 yo M with h/o of alcohol abuse, h/o withdrawal and sezieure, pancreatitis, obesity- Reportedly had binge drinking 11 days ago now, and became ill, unable to eat/drink- Had witnessed seizure 2 days prior to admission - On arrival to ED found to be hyponatremic to 118, hypokalemic, dehydrated with AMS Patient was given 3-4 L of NS over last day and Na corrected to 126 this am. Goal 125 by 1 pm today . He was also given 200 mEq of K and K this am up to 2.3 from 1.8. Overnight, he had low MAPs as low as 55 intermittently. He has had no associated fever, localizing sx of infection LA this am 2.9 ( no prior for comparison). At that point ICU consulted for possible vasopressor need. However on awakening, MAP is 80, patient is alert and eating/ drinking and interacting with family at bedside. [facility], [facility] Medical History Alcohol use disorder Social History household members: family Smoking Status: Current some day smoker alcohol intake: current Current Medications Current Medications Medications: Home Medications No Known Home Medications 07/01/22 [History Confirmed 07/01/22] Visit Medications (administered) Generic Name Dose Route Start Last Admin Trade Name Freq PRN Reason Stop Dose Admin Folic Acid 1 mg 07/02/22 09:00 07/02/22 08:15 Folic Acid 1 Mg Tablet PO 1 mg DAILY TENA Administration Dextrose 1,000 mls @ 100 mls/hr 07/02/22 06:15 07/02/22 06:16 Dextrose 5% Water IV 100 mls/hr CONT TENA Administration Multivitamins 1 tab 07/02/22 09:00 07/02/22 08:15 Multivitamin 1 Tablet PO 1 tab DAILY TENA Administration Potassium Chloride 40 meq 03/23/23 08:00 07/02/22 08:15 Potassium Chloride 20 Meq Tab PO 40 meq TIDWM TENA Administration Thiamine HCl 100 mg 07/02/22 09:00 07/02/22 08:15 Thiamine 100 Mg Tablet PO 07/05/22 09:01 100 mg DAILY TENA Administration Review of Systems Gastrointestinal Comments: mild nausea, poor appetite but improving today Exam Vital Signs (past 8 hours): - 07/02/22 02:30 07/02/22 02:30 07/02/22 03:00 Temperature Pulse Rate 66 Respiratory Rate 21 Blood Pressure 99/55 L 105/60 Pulse Oximetry 98 Oxygen Flow Rate 07/02/22 03:00 07/02/22 03:30 07/02/22 03:30 Temperature Pulse Rate 72 68 Respiratory Rate 12 10 L Blood Pressure 104/55 L Pulse Oximetry 98 100 Oxygen Flow Rate 2 07/02/22 04:00 07/02/22 04:00 07/02/22 04:30 Temperature 96.8 F L Pulse Rate 64 Respiratory Rate 20 Blood Pressure 102/55 L 92/46 L Pulse Oximetry 98 Oxygen Flow Rate 2 07/02/22 04:30 07/02/22 05:00 07/02/22 05:00 Temperature Pulse Rate 71 72 Respiratory Rate 24 23 Blood Pressure 87/43 L Pulse Oximetry 100 97 Oxygen Flow Rate 07/02/22 05:30 07/02/22 05:30 07/02/22 06:00 Temperature Pulse Rate 72 Respiratory Rate 21 Blood Pressure 87/45 L 95/55 L Pulse Oximetry 100 Oxygen Flow Rate 07/02/22 06:00 07/02/22 07:00 07/02/22 06:30 Temperature 97.6 F Pulse Rate 72 Respiratory Rate 19 Blood Pressure 95/52 L Pulse Oximetry 98 Oxygen Flow Rate 2 07/02/22 06:30 07/02/22 07:00 07/02/22 07:00 Temperature Pulse Rate 77 70 Respiratory Rate 19 20 Blood Pressure 83/45 L Pulse Oximetry 98 97 Oxygen Flow Rate 07/02/22 07:30 07/02/22 07:30 07/02/22 08:00 Temperature Pulse Rate 66 68 Respiratory Rate 21 14 Blood Pressure 84/48 L Pulse Oximetry 98 100 Oxygen Flow Rate 07/02/22 08:30 07/02/22 08:37 07/02/22 08:37 Temperature Pulse Rate 74 74 Respiratory Rate 20 26 H Blood Pressure 124/58 L Pulse Oximetry 99 100 Oxygen Flow Rate 07/02/22 09:00 07/02/22 09:00 07/02/22 09:30 Temperature Pulse Rate 78 Respiratory Rate 17 Blood Pressure 108/51 L 113/58 L Pulse Oximetry 99 Oxygen Flow Rate 07/02/22 09:30 Temperature Pulse Rate 86 Respiratory Rate 35 H Blood Pressure Pulse Oximetry 99 Oxygen Flow Rate Oxygen Delivery Method Nasal Cannula Oxygen Flow Rate 2 Narrative Exam Narrative: Awake, alert wearing 2 L NC family at bedside, Eating breakfast Resp Other: NO acute distress Objective Labs 07/02/22 04:05 07/02/22 08:03 Labs: Laboratory Results - last 24 hr 07/01/22 07/01/22 07/01/22 13:38 13:48 13:48 WBC 12.7 H RBC 5.80 Hgb 14.5 Hct 43.5 MCV 75.0 L MCH 25.0 L MCHC 33.4 RDW 15.5 H Plt Count 221 Neut % (Auto) 73.6 Lymph % (Auto) 9.0 L [place] % (Auto) 17.1 H Eos % (Auto) 0.1 L Baso % (Auto) 0.2 Neut # (Auto) 9400 H Lymph # (Auto) 1200 [place] # (Auto) 2200 H Eos # (Auto) 0 Baso # (Auto) 0 Sodium 118 L* Potassium 1.8 L* Chloride 52 L* Carbon Dioxide 45 H* BUN 45 H Creatinine 1.27 H Estimated GFR > 60 BUN/Creatinine Ratio 35.4 H Glucose 185 H Lactate Calcium 8.9 Magnesium 2.7 H Total Bilirubin 4.9 H Conjugated Bilirubin Unconjugated Bilirubin AST 74 H ALT 60 H Alkaline Phosphatase 85 Total Protein 9.0 H Albumin 4.9 Globulin 4.1 Albumin/Globulin Ratio 1.2 Lipase 479 H Cortisol AM Sample Ur Random Sodium Nasal Screen MRSA (PCR) U Opiates 300ng/mL cut Ur Oxycodone Screen Urine Methadone Screen Ur Barbiturates Screen U Tricyclic Antidepress Ur Phencyclidine Scrn Ur Amphetamines Screen U Methamphetamines Scrn Ur MDMA Scrn (Ecstasy) U Benzodiazepines Scrn Urine Cocaine Screen U Marijuana (THC) Screen Ethyl Alcohol < 10 SARS-CoV-2 (PCR) 0307/01/22 07/01/22 14:31 16:05 16:20 WBC RBC Hgb Hct MCV MCH MCHC RDW Plt Count Neut % (Auto) Lymph % (Auto) [place] % (Auto) Eos % (Auto) Baso % (Auto) Neut # (Auto) Lymph # (Auto) [place] # (Auto) Eos # (Auto) Baso # (Auto) Sodium 120 L Potassium 1.8 L* Chloride 57 L* Carbon Dioxide 53 H* BUN 44 H Creatinine 1.11 Estimated GFR > 60 BUN/Creatinine Ratio 39.6 H Glucose 100 Lactate Calcium 8.0 L Magnesium Total Bilirubin 4.6 H Conjugated Bilirubin 0.0 Unconjugated Bilirubin 4.2 H AST 65 H ALT 41 Alkaline Phosphatase 79 Total Protein 8.3 H Albumin 4.3 Globulin 4.0 Albumin/Globulin Ratio 1.1 Lipase Cortisol AM Sample Ur Random Sodium Nasal Screen MRSA (PCR) Not detected U Opiates 300ng/mL cut Ur Oxycodone Screen Urine Methadone Screen Ur Barbiturates Screen U Tricyclic Antidepress Ur Phencyclidine Scrn Ur Amphetamines Screen U Methamphetamines Scrn Ur MDMA Scrn (Ecstasy) U Benzodiazepines Scrn Urine Cocaine Screen U Marijuana (THC) Screen Ethyl Alcohol SARS-CoV-2 (PCR) Negative 07/01/22 07/01/22 07/01/22 19:52 19:52 21:30 WBC 10.7 RBC 4.84 Hgb 12.3 L Hct 36.2 L MCV 74.8 L MCH 25.4 L MCHC 34.0 RDW 15.4 H Plt Count 184 Neut % (Auto) Lymph % (Auto) [place] % (Auto) Eos % (Auto) Baso % (Auto) Neut # (Auto) Lymph # (Auto) [place] # (Auto) Eos # (Auto) Baso # (Auto) Sodium 121 L Potassium 2.6 L* Chloride 69 L* Carbon Dioxide 44 H* BUN 36 H Creatinine 0.99 Estimated GFR > 60 BUN/Creatinine Ratio 36.4 H Glucose 103 H Lactate Calcium 7.3 L Magnesium Total Bilirubin Conjugated Bilirubin Unconjugated Bilirubin AST ALT Alkaline Phosphatase Total Protein Albumin Globulin Albumin/Globulin Ratio Lipase Cortisol AM Sample Ur Random Sodium 36 Nasal Screen MRSA (PCR) U Opiates 300ng/mL cut Ur Oxycodone Screen Urine Methadone Screen Ur Barbiturates Screen U Tricyclic Antidepress Ur Phencyclidine Scrn Ur Amphetamines Screen U Methamphetamines Scrn Ur MDMA Scrn (Ecstasy) U Benzodiazepines Scrn Urine Cocaine Screen U Marijuana (THC) Screen Ethyl Alcohol SARS-CoV-2 (PCR) 07/01/22 07/02/22 07/02/22 21:30 00:47 04:05 WBC RBC Hgb Hct MCV MCH MCHC RDW Plt Count Neut % (Auto) Lymph % (Auto) [place] % (Auto) Eos % (Auto) Baso % (Auto) Neut # (Auto) Lymph # (Auto) [place] # (Auto) Eos # (Auto) Baso # (Auto) Sodium 122 L 125 L Potassium 2.5 L* 2.4 L* Chloride 75 L* 77 L Carbon Dioxide 40 H* 43 H* BUN 30 H 27 H Creatinine 0.90 0.85 Estimated GFR > 60 > 60 BUN/Creatinine Ratio 33.3 H 31.8 H Glucose 102 H 96 Lactate Calcium 7.4 L 7.7 L Magnesium Total Bilirubin Conjugated Bilirubin Unconjugated Bilirubin AST ALT Alkaline Phosphatase Total Protein Albumin Globulin Albumin/Globulin Ratio Lipase Cortisol AM Sample Ur Random Sodium Nasal Screen MRSA (PCR) U Opiates 300ng/mL cut Negative Ur Oxycodone Screen Negative Urine Methadone Screen Negative Ur Barbiturates Screen Positive H U Tricyclic Antidepress Negative Ur Phencyclidine Scrn Negative Ur Amphetamines Screen Negative U Methamphetamines Scrn Negative Ur MDMA Scrn (Ecstasy) Negative U Benzodiazepines Scrn Negative Urine Cocaine Screen Negative U Marijuana (THC) Screen Positive H Ethyl Alcohol SARS-CoV-2 (PCR) 07/02/22 07/02/22 07/02/22 04:05 08:03 08:03 WBC 9.3 RBC 4.77 Hgb 12.0 L Hct 36.2 L MCV 76.0 L MCH 25.2 L MCHC 33.1 RDW 15.5 H Plt Count 171 Neut % (Auto) 50.1 D Lymph % (Auto) 34.4 D [place] % (Auto) 14.4 H Eos % (Auto) 0.5 L Baso % (Auto) 0.6 Neut # (Auto) 4600 Lymph # (Auto) 3200 [place] # (Auto) 1300 H Eos # (Auto) 0 Baso # (Auto) 100 Sodium 126 L Potassium 2.3 L* Chloride 78 L Carbon Dioxide 41 H* BUN 24 H Creatinine 0.89 Estimated GFR > 60 BUN/Creatinine Ratio 27.0 H Glucose 114 H Lactate Calcium 7.8 L Magnesium Total Bilirubin Conjugated Bilirubin Unconjugated Bilirubin AST ALT Alkaline Phosphatase Total Protein Albumin Globulin Albumin/Globulin Ratio Lipase Cortisol AM Sample 6.05 Ur Random Sodium Nasal Screen MRSA (PCR) U Opiates 300ng/mL cut Ur Oxycodone Screen Urine Methadone Screen Ur Barbiturates Screen U Tricyclic Antidepress Ur Phencyclidine Scrn Ur Amphetamines Screen U Methamphetamines Scrn Ur MDMA Scrn (Ecstasy) U Benzodiazepines Scrn Urine Cocaine Screen U Marijuana (THC) Screen Ethyl Alcohol SARS-CoV-2 (PCR) 07/02/22 09:10 WBC RBC Hgb Hct MCV MCH MCHC RDW Plt Count Neut % (Auto) Lymph % (Auto) [place] % (Auto) Eos % (Auto) Baso % (Auto) Neut # (Auto) Lymph # (Auto) [place] # (Auto) Eos # (Auto) Baso # (Auto) Sodium Potassium Chloride Carbon Dioxide BUN Creatinine Estimated GFR BUN/Creatinine Ratio Glucose Lactate 2.9 H Calcium Magnesium Total Bilirubin Conjugated Bilirubin Unconjugated Bilirubin AST ALT Alkaline Phosphatase Total Protein Albumin Globulin Albumin/Globulin Ratio Lipase Cortisol AM Sample Ur Random Sodium Nasal Screen MRSA (PCR) U Opiates 300ng/mL cut Ur Oxycodone Screen Urine Methadone Screen Ur Barbiturates Screen U Tricyclic Antidepress Ur Phencyclidine Scrn Ur Amphetamines Screen U Methamphetamines Scrn Ur MDMA Scrn (Ecstasy) U Benzodiazepines Scrn Urine Cocaine Screen U Marijuana (THC) Screen Ethyl Alcohol SARS-CoV-2 (PCR) Assessment & Plan Assessment and plan (1) Hyponatremia: Status: Acute Plan: Hyponatremia, associated with alcohol use, and poor PO intake, dehydration. Goal Na 125 by 1 pm today. Goal increase over next 24 hours no more than 6 Meq ( 131 ) by 1 pm tomorrow May need continued free water or DDAVP continue q 4 hour Na checks High risk for osmotic demyleination given alcohol hx, likely cirrhosis, hypokalemia Recommend consult nephrology if avail Continue to monitor for seizure activity, although less likely now that Na >120 (2) Hypokalemia: Status: Acute Plan: Continue K replacement oral and IV Mag WNL (3) Alcohol use disorder: Status: Acute Plan: consult for rehab if amenable Given 11 days out from last drink should be outside withdrawal window CIWA protocol ordered MVI, thiamine, folate (4) Hypotension: Status: Acute Plan: Nocturnal hypotension resolved- may be low catechol state after withdrawal, plus dehydration Continue D5w No localizing sx of sepsis would do blood, urine cultures check procalcitonin LA this am slightly elevated at 2.9, however unable to determine trend as this is first checked would repeat at 2 PM check cortisol TTE given substaunce abuse - risk factor for cardiomyopathy No current need for pressors Plan Continue ICU care for critical hyponatremia Time Spent With Patient Time with patient: 30 to 49 minutes with 50% spent counseling/coordinating care (45 min critical care time spent.)
[2022-07-02] MEDS: NOREPINEPHRINE BITARTRATE/D5W 4 MG/250 ML PLAST..BAG 30 MG IV (11:00)
[2022-07-02] MEDS: POTASSIUM CHLORIDE IN WATER 10 MEQ/100 ML PIGGYBACK 100 MEQ IV ×4 (11:00→13:35)
[2022-07-02 11:15] LABS: Reflexed Lactate in 2 Hours Y
[2022-07-02] MEDS: CALCIUM GLUCONATE 4.65 MEQ in SODIUM CHLORIDE 0.9% 50 ML 180 MEQ IV (11:34)
[2022-07-02] MEDS: COSYNTROPIN 0.25 MG VIAL IV (11:41)
--- NOTE | 2022-07-02 11:58 | DIET.CONS ---
Addendum entered by Cyndie Cole 07/02/22 12:03: RD agrees with sales management intern note below. Original Note: Dietary Consultation Note Admission Date: 07/01/2022 14:40 Assessment: 36 y/o M admitted with PHM of ETOH abuse and pancreatitis r/t ETOH. Pt with severe hyponatremia and hypokalemia. RD consulted for alcoholism and severe low sodium (118) resulting in seizure at home. Met with pt at bedside along with family to discuss current dietary intake. Pt quickly responded that he has been eating ?terribly,? however, is motivated to start cooking every day again. Pt reports feeling ?substantially? weaker, feels that he has lost wt though amount not quantified, and denies nausea since admitted. Pt notes he struggles with chronic constipation. Prior to hospitalization, pt was only eating 1 meal/day with etoh for past month and nothing for the past week d/t vomiting. Diet recall: B: nothing L/D: something microwaveable/air friable ETOH: did not want to ask/go into depth about how much d/t family being room. However, pt believes majority of kcals came from ETOH. Ht: 172.72 cm Wt: 117.5 kg BMI: 39.4 MNA: 14 Sandoval Score: 20 Diet: 07/01/22 Dinner General (Regular) Diet Diet Modifications: Nutrition Percent Meal Consumed 100% 07/02/22 08:48 Percent Meal Consumed 100% 07/01/22 17:47 Labs: RBC 4.77 X10^6/uL (4.5-5.9) 07/02/22 04:05 Hgb 12.0 g/dL (13.5-17.5) L 07/02/22 04:05 Hct 36.2 % (41-53) L 07/02/22 04:05 Creatinine 0.89 mg/dL (0.66-1.25) 07/02/22 08:03 Lactate 2.9 mmol/L (0.7-2.1) H 07/02/22 09:10 Nutrition Diagnosis: inadequate protein energy intake r/t GI symptoms and excessive ETOH intake aeb N/V x1 week, diet recall showing POs meeting <25% EER, admitted with severe hypokalemia and hyponatremia. Interventions: 1. Encouraged increasing protein intake at each meal to support lean muscle loss. 2. Discussed sources of soluble fiber and recommended increasing intake along with water for constipation. 3. Recommend focusing on meal planning to support sobriety. 4. Encouraged getting back into physical activity- pt has trail near home and will start walking daily upon d/c to support LBM. Monitoring/Evaluations: consult YUNI persaudn. Electronically Signed by: Orquidea Ibanez 07/02/22 11:58 Clinical Dietitian [address] [address]
[2022-07-02 12:05] LABS: BUN Creatinine Ratio 24.4 (6-22); Blood Urea Nitrogen 22 mg/dL (9-20); Calcium 7.7 mg/dL (8.4-10.2); Chloride 80 mmol/L (98-107); Estimated Glomerular Filt Rate > 60 mL/min (>60); Glucose 146 mg/dL (70-100); HEMOLYSIS < 15 (0-50); Lactate 2HR (Lactic Acid Rflx) 2.8 mmol/L (0.7-2.1); Phosphorous 1.7 mg/dL (2.5-4.5); Sodium 125 mmol/L (137-145)
[2022-07-02 12:12] LABS: Carbon Dioxide 37 mmol/L (22-32)
[2022-07-02 12:13] LABS: Potassium 2.4 mmol/L (3.4-5.1)
--- NOTE | 2022-07-02 12:35 | CM.IDA ---
Initial DCP Assessment Patient is 36 y/o male who presents to via POV due to concern for withdrawals after ETOH use last weekend. It is reported that patient had approximately 3 observed seizures. Patient was admitted due to concern for Hypoatremia, Hypokalemia, Alcohol use disorder, seizure like activity and Acute Kidney Injury. Patient's PCP is Dr. Jenni Meyer at [facility] and patient has [place] [employer] insurance. SENIOR UNIX ADMINISTRATOR enters room to meet with patient, present in room is patient's two children and ex-partner who are visiting patient from [place], [place]. Patient presents as A/Ox4, patient resides in [place] with mother. Patient states it's fine, could be better. Patient indicates independence with ADLs and access to transportation. Patient endorses he is not currently working. Patient endorses he has access to basic needs. It is reported by RN that patient had significant N/V prior to ED visit and was not eating or drinking. It is reported that patient still has a critical lab for his potassium levels but all other labs are improving. Patient endorses he plans to focus on meal preparation upon his d/c to home. Patient denies any resources or services and denies DCP needs. It is reported to SENIOR UNIX ADMINISTRATOR that [facility] Specialist with [place] [address] in [place] is familiar with patient and SENIOR UNIX ADMINISTRATOR provides patient with contact card, patient endorses he is aware of their resources in the community. Plan: Patient continues to be monitored by ICU telehealth, patient likely to d/c to home with family, no reported DCP needs at this time. DCP to f/u. DIDI Manriquez Discharge Planning/Care Management CM Discharge Assessment Start: 07/02/22 12:30 Freq: Status: Active Protocol: Document 07/02/22 12:31 LN (Rec: 07/02/22 12:34 LN [id number]) Discharge Planning Assessment Assigned Executive Manager DIDI Haney Advance Directives? No History Provided By Patient,Medical Record Has Patient been admitted in last 30 No days? Prior Living Arrangements House Household Members family Comment Lives with mother Type of transporation used prior to Drives own vehicle admit Independent with ADL's Yes Is patient alert and oriented? Yes Transportation Arrangement family Referrals Initiated None needed Additional Comment Patient denies need for any resources or services Please Provide Date Initial DC 07/02/22 Assessment Was Performed
[2022-07-02 12:36] LABS: TSH w/ Reflex to FT4 0.99 uIU/mL (0.47-4.68)
[2022-07-02 13:18] LABS: Appearance Urine UA CLEAR; Bilirubin Urine UA NEGATIVE (NEGATIVE); Color Urine UA YELLOW; Glucose Urine UA NEGATIVE (Negative); Ketones Urine UA NEGATIVE (NEGATIVE); Leukocyte Esterase Urine UA NEGATIVE (NEGATIVE); Nitrite Urine UA NEGATIVE (Negative); Occult Blood Urine UA NEGATIVE (Negative); Protein Urine UA NEGATIVE (Negative); Specific Gravity Urine UA <=1.005 (1.000-1.035); Urobilinogen Urine UA >=8.0 E.U./dL (0.2); pH Urine UA 6.5 (4.5-8.0)
[2022-07-02 13:30] LABS: Bacteria Urine None Seen; Culture Indicated Urine Cult Not Indicated; RBC Urine None Seen (0-5/HPF); Urine Comments Microscopic Normal; WBC Urine None Seen (0-5/HPF)
[2022-07-02 14:01] LABS: Cortisol Random 28.2 ug/dL
[2022-07-02] MEDS: SODIUM CHLORIDE 0.9% 1,000 ML 1000 ML IV (14:10)
[2022-07-02] MEDS: POTASSIUM PHOSPHATE 45 MMOL in SODIUM CHLORIDE 0.9% 500 ML 64.375 MMOL IV (14:18)
[2022-07-02 14:38] LABS: Procalcitonin 0.13 ng/mL (<0.5)
[2022-07-02] MEDS: SODIUM CHLORIDE 0.9% 1,000 ML 100 ML IV (15:30)
[2022-07-02 16:20] LABS: BUN Creatinine Ratio 26.3 (6-22); Blood Urea Nitrogen 20 mg/dL (9-20); Calcium 7.8 mg/dL (8.4-10.2); Carbon Dioxide 35 mmol/L (22-32); Chloride 87 mmol/L (98-107); Estimated Glomerular Filt Rate > 60 mL/min (>60); Glucose 120 mg/dL (70-100); HEMOLYSIS < 15 (0-50); Potassium 3.6 mmol/L (3.4-5.1); Sodium 127 mmol/L (137-145)
--- NOTE | 2022-07-02 20:11 | PM.ICURNDS ---
- Date Patient Seen: 07/02/22 Time Patient Seen: 20:12 :: This patient was seen via real time interactive two-way audiovisual telecommunication. Note: No acute issues during the day. On NS at 100cc/hr. Na Current Na 127 which is improving slowly. Goal Na 131 by tomorrow morning. Cont checking BMP every 4 hours. Replete lytes as needed to maintain goal K > 4 and Mg >2. Remains normotensive, not necessitating levophed at this time. D/w RN at bedside.
[2022-07-02 21:16] LABS: BUN Creatinine Ratio 25.3 (6-22); Blood Urea Nitrogen 19 mg/dL (9-20); Calcium 7.7 mg/dL (8.4-10.2); Carbon Dioxide 31 mmol/L (22-32); Chloride 91 mmol/L (98-107); Estimated Glomerular Filt Rate > 60 mL/min (>60); Glucose 143 mg/dL (70-100); HEMOLYSIS < 15 (0-50); Potassium 3.1 mmol/L (3.4-5.1); Sodium 129 mmol/L (137-145)
[2022-07-03] VITALS (28 sets, daily range): BP systolic 109–128; BP diastolic 56–69; PULSE 65–91; RESP 15–31; TEMP 37; O2SAT 79–99
[2022-07-03] MEDS: SODIUM CHLORIDE 0.9% 1,000 ML 100 ML IV (01:18)
--- NOTE | 2022-07-03 03:50 | PC.NURSE ---
0300- Patient assisted up to the bathroom. Patient states he feels dizzy with mobilization but once his bearings are established his gait is steady. 1 person assist. Patient able to have a bowel movement and states he feels much better. Will monitor.
[2022-07-03 05:14] LABS: Add Manual Diff / Slide Review NO; Basophils Absolute Auto 100 /uL (0-100); Basophils Percent Auto 0.9 % (0-2); Eosinophils Absolute Auto 100 /uL (0-450); Hematocrit 32.2 % (41-53); Hemoglobin 10.8 g/dL (13.5-17.5); Lymphocytes Absolute Auto 3700 /uL (1100-4500); Mean Corpuscular HGB Conc 33.6 % (30-36); Mean Corpuscular Hemoglobin 25.6 PG (26-34); Mean Corpuscular Volume 76.1 fL (80-100); Monocytes Absolute Auto 1000 /uL (0-900); Neutrophils Absolute Auto 4200 /uL (1500-7000); Neutrophils Percent Auto 46.1 % (50-75); Platelet Count 179 X10^3/uL (150-400); Red Blood Cell Count 4.23 X10^6/uL (4.5-5.9); Red Cell Distribution Width 15.5 % (11.6-14.8); White Blood Cell Count 9.1 X10^3/uL (4.5-11.0)
[2022-07-03 05:25] LABS: Phosphorous 1.9 mg/dL (2.5-4.5)
[2022-07-03 06:20] LABS: BUN Creatinine Ratio 22.7 (6-22); Blood Urea Nitrogen 15 mg/dL (9-20); Calcium 7.9 mg/dL (8.4-10.2); Carbon Dioxide 34 mmol/L (22-32); Chloride 96 mmol/L (98-107); Estimated Glomerular Filt Rate > 60 mL/min (>60); Glucose 85 mg/dL (70-100); HEMOLYSIS < 15 (0-50); Potassium 3.1 mmol/L (3.4-5.1); Sodium 134 mmol/L (137-145)
[2022-07-03] MEDS: DEXTROSE 5% WATER 1,000 ML 100 ML IV (07:42)
[2022-07-03] MEDS: POTASSIUM PHOSPHATE 45 MMOL in SODIUM CHLORIDE 0.9% 500 ML 64.375 MMOL IV (07:43)
[2022-07-03] MEDS: POTASSIUM CHLORIDE 20 MEQ TAB 40 MEQ PO ×3 (09:48→16:04)
[2022-07-03] MEDS: THIAMINE 100 MG TABLET PO (09:48)
[2022-07-03] MEDS: FOLIC ACID 1 MG TABLET PO (09:50)
[2022-07-03] MEDS: MULTIVITAMIN 1 TABLET 1 TAB PO (09:51)
[2022-07-03 15:30] LABS: BUN Creatinine Ratio 17.8 (6-22); Blood Urea Nitrogen 13 mg/dL (9-20); Calcium 8.1 mg/dL (8.4-10.2); Carbon Dioxide 28 mmol/L (22-32); Chloride 100 mmol/L (98-107); Estimated Glomerular Filt Rate > 60 mL/min (>60); Glucose 102 mg/dL (70-100); HEMOLYSIS < 15 (0-50); Sodium 134 mmol/L (137-145)
--- NOTE | 2022-07-03 15:39 | P.DS_ITS ---
History of Present Illness History of Present Illness Date Patient Seen: 07/03/22 Time Patient Seen: 15:44 Chief complaint: alcohol withdrawls Narrative: Colleen Dugan is a 36yo M with PMH of alcohol abuse and pancreatitis who presents with seizure 2 days ago and found to have severe hyponatremia and hypokalemia. Patient states he developed nausea about a week ago and hasn't eaten a full meal since then. He has had very poor po intake of fluids during that time. He went on an alcohol field and says his last drink was 9 days ago. He has been feeling poorly since then. He then had a seizure witnessed by his mother 2 days ago. He did not want to come to the hospital but his mom finally forced him to today. He currently has a very dry mouth and feels very cold. Denies current headache, NV, CP, SOB, abd pain, diarrhea or dysuria. Discharge Providers Provider Date of admission: 07/01/22 14:40 Discharge Date: 07/03/22 Consults: 07/01/22 14:46 Consult to Dietitian, Adult Routine Comment: Reason For Exam: alcoholism, severe low sodium 07/01/22 17:23 Consult to Cold Rolling Machine Setter Routine Comment: 07/02/22 08:51 Consult to Tele-delivery director Routine Comment: Consulting Provider: Sushil Tele-intensivists Reason for consultation: Salesperson Sheet Music services Discharge provider: Juanjose Perdomo DO Summary Hospital Course Discharge Diagnosis: # undifferentiated shock, unclear etiology, resolved -BP 80/40's which improved with IVF -echo with EF 65-70% and diastolic dysfunction -ACTH stim test was negative -likely hypovolemic as patient's chloride very low and bicarb very high -improved with several fluid boluses # severe hyponatremia with subacute seizure, resolved -patient's mother notes a seizure at home 2 days ago, likely due to low sodium from hypovolemia as chloride is 52 -given several liters of IVF NS with eventual correction from 118 to 134 over 2 days # severe hypokalemia, hypophosphatemia resolved -potassium 1.8 on admission, hadn't eaten much in 1 week per patient -given large doses of IV and po K -mag 2.0 -K 4 on discharge -counseled on high potassium diet # prolonged QT -QTc 559 on EKG on 07/02, not on offending medications -mag 2 -avoid prolonging medications -monitor -tele # hyperbilirubinemia and elevated LFTs -T-bili 4.9, AST 74 and ALT 60. Alk phos normal. -no abdominal pain, doubt choledocho -unfractionated bili 4.2, fractionated is 0 thus making obstructive cause unl ikely and intrinsic liver disease likely -monitor # alcohol abuse with h/o alcohol withdrawal seizures -went on a field 10 days ago -not in withdrawals, outside of window as last drink 9 days ago Hospital Course: Admitted for seizure 2 days prior and not feeling well. Found to have sodium of 118 and potassium of 1.8. Likely hypovolemic from poor po intake from nausea related to his drinking alcohol. This was corrected over 2 days with NS and IV and po K. His sodium on discharge was 134 and potassium 4. He was counseled to eat potassium rich foods and avoid alcohol. Time Spent with Patient Time spent: Greater than 30 minutes Exam Vital Signs (past 8 hours): Oxygen Delivery Method Nasal Cannula Oxygen Flow Rate 2 Narrative Exam Narrative: GEN: no acute distress, appears more hydrated than on admission HEENT: dry mucous membranes improved, PERRL NECK: trachea midline, no JVD CV: regular rate and rhythm, no murmurs PULM: clear bilaterally ABD: soft, nontender, nondistended, no organomegaly EXT: warm and well perfused with no edema NEURO: awake, alert, oriented, no focal deficits Objective Labs 07/03/22 04:30 07/03/22 15:02 Labs: Laboratory Results - last 24 hr 07/02/22 07/02/22 07/03/22 16:01 20:57 04:30 WBC 9.1 RBC 4.23 L Hgb 10.8 L Hct 32.2 L MCV 76.1 L MCH 25.6 L MCHC 33.6 RDW 15.5 H Plt Count 179 Neut % (Auto) 46.1 L Lymph % (Auto) 41.0 H [place] % (Auto) 11.0 Eos % (Auto) 1.0 L Baso % (Auto) 0.9 Neut # (Auto) 4200 Lymph # (Auto) 3700 [place] # (Auto) 1000 H Eos # (Auto) 100 Baso # (Auto) 100 Sodium 127 L 129 L Potassium 3.6 D 3.1 L Chloride 87 L 91 L Carbon Dioxide 35 H 31 BUN 20 19 Creatinine 0.76 0.75 Estimated GFR > 60 > 60 BUN/Creatinine Ratio 26.3 H 25.3 H Glucose 120 H 143 H Calcium 7.8 L 7.7 L Phosphorus Magnesium 07/03/22 07/03/22 07/03/22 04:30 04:30 04:30 WBC RBC Hgb Hct MCV MCH MCHC RDW Plt Count Neut % (Auto) Lymph % (Auto) [place] % (Auto) Eos % (Auto) Baso % (Auto) Neut # (Auto) Lymph # (Auto) [place] # (Auto) Eos # (Auto) Baso # (Auto) Sodium 134 L Potassium 3.1 L Chloride 96 L Carbon Dioxide 34 H BUN 15 Creatinine 0.66 Estimated GFR > 60 BUN/Creatinine Ratio 22.7 H Glucose 85 Calcium 7.9 L Phosphorus 1.9 L Magnesium 2.0 07/03/22 15:02 WBC RBC Hgb Hct MCV MCH MCHC RDW Plt Count Neut % (Auto) Lymph % (Auto) [place] % (Auto) Eos % (Auto) Baso % (Auto) Neut # (Auto) Lymph # (Auto) [place] # (Auto) Eos # (Auto) Baso # (Auto) Sodium 134 L Potassium 4.0 Chloride 100 Carbon Dioxide 28 BUN 13 Creatinine 0.73 Estimated GFR > 60 BUN/Creatinine Ratio 17.8 Glucose 102 H Calcium 8.1 L Phosphorus Magnesium [facility] Medical History Alcohol use disorder Social History household members: family Smoking Status: Current some day smoker alcohol intake: current Discharge Plan Discharge Plan Patient Disposition: Home Provider Discharge Comment: You were admitted for a seizure and very low sodium, which is likely what caused the seizure. This was from poor oral intake of fluids and food. Your potassium was also very low. We corrected your sodium from 118 to near normal of 134 mainly with IV fluids. We also corrected your potassium from 1.8 to 4. If you keep eating ok then your potassium and sodium levels should stay steady. Discharge orders & Medications Prescriptions: Continued No Known Home Medications Follow up/Referrals: Miscellaneous,DoctorMD [Non-Staff] - Visit Report/Discharge Packet Instructions: DI for Hypokalemia, DI for Hyponatremia Stand Alone Forms: Patient Portal/API, Stroke Signs & Symptoms Quality VTE Deep Vein Thrombosis/Pulmonary Embolism Present on Admission: No
--- NOTE | 2022-07-03 16:57 | PC.NURSE ---
Discharge note: IV's discontinued, tele removed. Patient education provided. Questions answered. Patient wheeled via wheelchair to private vehicle with PCT and family member at [id number].
[2022-07-05 10:34] LABS: Adrenocorticotropic Hormone 25.4 pg/mL (7.2-63.3)
== END 2022-07-03 16:55 | disposition home or self-care (01) | DRG 426 ==
LOC: ED 14:22 → AC 14:44 → ICU 16:01
PROVIDERS: Internal Medicine; Nurse Practitioner Family; Admitting Provider Student in an Organized Health Care Education/Training Program; Emergency Provider Emergency Medicine; Referring Provider Emergency Medicine; Visit Provider Student in an Organized Health Care Education/Training Program
DX: E87.1 Hypo-osmolality and hyponatremia (principal); R56.9 Unspecified convulsions; E87.6 Hypokalemia; E80.6 Other disorders of bilirubin metabolism; F10.10 Alcohol abuse, uncomplicated; E83.39 Other disorders of phosphorus metabolism; R94.31 Abnormal electrocardiogram [ECG] [EKG]; R57.8 Other shock; E86.1 Hypovolemia; F17.200 Nicotine dependence, unspecified, uncomplicated; Y90.0 Blood alcohol level of less than 20 mg/100 ml; Z20.822 Contact with and (suspected) exposure to COVID-19
CPT/HCPCS: 36415; 74177; 80048; 80053; 80076; 80305; 80320; 81001; 82024; 82330; 82533; 83605; 83690; 83735; 84100; 84145; 84300; 84443; 85025; 85027; 87635; 87797; 93005; 93010; 93306; 96365; 96367; 96375; 99285; 99291; C9803; J0610; J0834; J2560; Q9967